=== PATIENT | male | born 1985 | race Caucasian/White ===

== ENCOUNTER 2024-10-05 20:34 | Emergency (ER) | payer MEDICAID ==
[~2024-10-05] VITALS: Ht 182.9 cm; Wt 77.1 kg
[2024-10-05] MEDS ORDERED: IBUP-1957 PO (23:24)
[2024-10-05] MEDS ORDERED: ACET1TAB23 PO (23:24)
[2024-10-06 00:18] VITALS: BP 124/93; TEMP 97.8; O2SAT 98
== END 2024-10-06 00:19 | disposition home or self-care (01) ==
LOC: EDSEX 20:34 → ER 20:34
DX: S13.4XXA Sprain of ligaments of cervical spine, initial encounter (principal); R51.9 Headache, unspecified; Z79.1 Long term (current) use of non-steroidal anti-inflammatories (NSAID); X58.XXXA Exposure to other specified factors, initial encounter; Y93.89 Activity, other specified; Y92.89 Other specified places as the place of occurrence of the external cause; Y99.8 Other external cause status
CPT/HCPCS: 70450; 72125; A4606; A4663